=== PATIENT | female | born 1995 | race Caucasian/White ===

== ENCOUNTER 2017-06-20 19:32 | Emergency (ER) | payer BC ==
[2017-06-20 19:45] VITALS: BP 138/82
--- NOTE | 2017-06-20 19:56 | UC ---
Hand/Wrist HPI - HPI Summary HPI Summary: 21 YEAR OLD FEMALE PRESENTS WITH SWELLING OF RIGHT MIDDLE FINGER WITH NO TRAUMA. - History Of Current Complaint Chief Complaint: UCUpperExtremity Stated Complaint: HAND & FINGER PAIN,SWELLING Time Seen by Provider: 06/20/17 19:53 Hx Obtained From: Patient Hx From Patient Unobtainable Due To: Dementia Hx Last Menstrual Period: 06/02/17 ?: No Onset/Duration: Sudden Onset Severity Initially: Moderate Severity Currently: Moderate Pain Scale Used: 0-10 Numeric - 5 Character Of Pain: Sharp, Aching, Throbbing Aggravating Factor(s): Movement Alleviating: Rest - Allergies/Home Medications Allergies/Adverse Reactions: Allergies Allergy/AdvReac Type Severity Reaction Status Date / Time No Known Allergies Allergy Verified 06/20/17 19:46 Home Medications: Home Medications Control 06/20/17 [History] PMH/Surg Hx/FS Hx/Imm Hx Previously Healthy: Yes - Surgical History Surgical History: Yes Surgery Procedure, Year, and Place: 1999. wisdom teeth - Social History Alcohol Use: Weekly Substance Use Type: None Smoking Status (MU): Never Smoked Tobacco Review of Systems Constitutional: Negative Skin: Negative Eyes: Negative ENT: Negative Respiratory: Negative Cardiovascular: Negative Gastrointestinal: Negative Genitourinary: Negative Motor: Negative Neurovascular: Negative Musculoskeletal: Other: - RIGHT MIDDLE FINGER SWELLING Neurological: Negative Psychological: Negative All Other Systems Reviewed And Are Negative: Yes Physical Exam Triage Information Reviewed: Yes Vital Signs: Initial Vital Signs Temp 36.7 C 06/20/17 19:42 Pulse 69 06/20/17 19:42 Resp 16 06/20/17 19:42 BP 138/82 06/20/17 19:42 Pulse Ox 99 06/20/17 19:42 Eye Exam: Normal ENT Exam: Normal Dental Exam: Normal Neck exam: Normal Neck: Positive: 1 Respiratory Exam: Normal Cardiovascular Exam: Normal Abdominal Exam: Normal Musculoskeletal: Positive: Other: - RIGHT MIDDLE FINGER SWELLING Neurological Exam: Normal Psychological Exam: Normal Skin Exam: Normal Hand/Wrist Course/Dx - Differential Dx/Diagnosis Provider Diagnoses: RIGHT MIDDLE FINGER SWELLING Discharge - Discharge Plan Condition: Stable Disposition: HOME Prescriptions: Cephalexin CAP* [Keflex CAP*] 500 mg PO TID #30 cap Ibuprofen TAB* [Motrin TAB* 800 MG] 800 mg PO Q8H PRN #30 tab PRN Reason: Pain Patient Education Materials: Swollen Joint (ED)
--- NOTE | 2017-06-20 20:21 | RAD ---
HISTORY: Right hand pain COMPARISONS: None VIEWS: 4, Frontal, lateral, and oblique views of the right hand FINDINGS: BONE DENSITY: Normal. BONES: There is no displaced fracture. JOINTS: There is no arthropathy. ALIGNMENT: There is no dislocation. SOFT TISSUES: Unremarkable. OTHER FINDINGS: None. IMPRESSION: NO ACUTE OSSEOUS INJURY. IF SYMPTOMS PERSIST, RECOMMEND REPEAT IMAGING.
[2017-06-20] MEDS ORDERED: Ibuprofen TAB* 400 MG PO ONE (20:24)
== END 2017-06-20 20:35 | disposition home or self-care (01) ==
LOC: UCEAST 19:32
DX: M79.89 Other specified soft tissue disorders (principal)
CPT/HCPCS: 99202; A9270-GY; G0463